=== PATIENT | female | born 1960 | race Caucasian/White ===

== ENCOUNTER 2022-10-10 11:50 | Day surgery (SDC) | payer OTHER, SELFPAY ==
[2022-10-10] MEDS: LACTATED RINGERS 1,000 ML 200 ML IV (12:05)
[2022-10-10 12:23] VITALS: BP 130/84; PULSE 83; RESP 16; TEMP 36.6; O2SAT 100; BMI 22.3
--- NOTE | 2022-10-10 13:14 | P.HP_ITS ---
History of Present Illness History of Present Illness Date Patient Seen: 10/10/22 Time Patient Seen: 13:14 Chief complaint: SDC Narrative: 62-year-old woman with rectal bleeding here for colonoscopy and hemorrhoidal banding. Please refer to the H&P from August 2022 for further detail. Patient History Surgical History History of tonsillectomy Status post tubal ligation Family & Social History Social History: household members spouse Tobacco & Substance use: Smoking Status Never smoker alcohol intake current alcohol intake frequency 0-2 drinks per day Substance Use Type does not use Meds Home Medications and Allergies Allergies Allergy/AdvReac Type Severity Reaction Status Date / Time Penicillins [PENICILLINS] Allergy Unknown HIVES Verified 10/10/22 12:13 Exam Vital Signs (past 8 hours): - 10/10/22 12:23 Temperature 97.9 F Pulse Rate 83 Respiratory Rate 16 Blood Pressure 130/84 Pulse Oximetry 100 Oxygen Delivery Method Room Air Oxygen Delivery Method Room Air Narrative Exam Narrative: General adult woman alert oriented no acute distress Assessment & Plan Assessment & Plan narrative: 62-year-old woman with hemorrhoids and rectal bleeding here for colonoscopy and hemorrhoidal banding.. Technical details were discussed. Risks, benefits, alte rnatives explained. Risks including but not limited to myocardial infarction, aspiration, bleeding, pain, missed lesion, incomplete examination, need for further radiographic studies, colonic perforation, and need for major abdominal surgery were discussed. All questions were answered to their satisfaction, and they are in agreement with this plan. Time Spent With Patient Critical Care time: I spent a total of [] minutes of critical care time on this patient's care today; this time is exclusive of procedural time.
--- NOTE | 2022-10-10 13:44 | PM.OP.COLON ---
Operative Date/Time/Diagnoses Date of procedure: 10/10/22 Time of procedure: 13:44 Pre-op diagnosis: Rectal bleeding Post-op diagnosis: same Procedure & Clinicians Study performed: Colonoscopy and hemorrhoidal banding x3 Same procedure as scheduled: Yes Indications: Rectal bleeding history of hemorrhoids Surgeon: Bryan Mazariegos Procedure Notes Procedure in detail: The history and physical was performed/updated and the patient is ASA class is 2. The procedure was discussed in detail with the patient. Potential risks complications including infection, bleeding, missed diagnosis, perforation, need for surgery, and were explained. Their questions were answered and informed consent was obtained. Patient was brought to the procedure room and placed standard monitoring equipment. The patient's vital signs were monitored continuously throughout the entire procedure. Prior to starting time-out was performed. The patient was placed in the left lateral recumbent position. Procedural sedation was administered by anesthesia. Examination began with a thorough inspection of the perianal area there was no evidence of fissures, fistulae, external hemorrhoids or cutaneous malignancy. The colonoscopy scope was then placed into the anal canal and was advanced to the cecum, which was identified by the ileocecal valve, the appendiceal orifice and the confluence of the taenia. The scope was then slowly withdrawn examining colon thoroughly in all directions, irrigating it of any residual stool. FINDINGS 1. No masses or polyps 2. Grade 3 internal hemorrhoids The prep was of good/excellent quality. The withdrawl time was 6 minutes. Following completion of the colonoscopy attention was turned towards the internal hemorrhoids. She has grade 3 internal hemorrhoids freely prolapsing in all 3 columns. Suction was applied to each column and it was subsequently doubly ligated at its base. She tolerated the procedure well. Impression: Normal colonoscopy Post-procedure Recommendations: Colonoscopy in 10 years and High fiber diet Disposition: same day surgery
[2022-10-10 13:45] VITALS: BP 99/65; PULSE 74; RESP 12; TEMP 36.4; O2SAT 98
[2022-10-10 13:50] VITALS: BP 109/69; PULSE 96; RESP 15; O2SAT 100
[2022-10-10 14:03] VITALS: BP 141/85; PULSE 82; RESP 15; TEMP 36.3; O2SAT 99
--- NOTE | 2022-10-10 14:46 | SUR.PHASEII ---
1444: Pt A&Ox4, abdomen soft, reports pain as tolerated put will take own prn acetaminophen once DC'd. Discharge instructions reviewed with patient with time allowed for questions. Pt declined pink sitz bath, declined as prefer to use bathtub. Questions about prolapse of hemorrhoids near anus as normal, called Dr. Mazariegos who confirmed normal until slough off. IV DC'd intact, pt left unit via w/c with all personal belongings and written instructions.
== END 2022-10-10 14:44 | disposition home or self-care (01) ==
PROVIDERS: PCP Family Medicine; Referring Provider Surgery; Visit Provider Surgery
PROC: 0DJD8ZZ Inspection of Lower Intestinal Tract, Via Natural or Artificial Opening Endoscopic (ICD-10-PCS; CPT 45378; principal; 2022-10-10 12:45)
DX: K62.5 Hemorrhage of anus and rectum (principal)
CPT/HCPCS: 45378; 46221; J2704; J3010